=== PATIENT | female | born 1970 | race Two or more races ===

== ENCOUNTER 2017-09-06 09:13 | Emergency (ER) | payer SELFPAY ==
[2017-09-06 09:19] VITALS: BP 113/75; PULSE 78; RESP 18; TEMP 97.7; O2SAT 96
--- NOTE | 2017-09-06 09:26 | EDPHY ---
H & P Stated Complaint: r upper tooth pain swelling since 1 week Time Seen by Provider: 09/06/17 09:25 - Personal History LMP (Females 10-55): 22-28 Days Ago Current Tetanus/Diphtheria Vaccine: No - Medical/Surgical History Hx Asthma: No Hx Chronic Respiratory Disease: No Hx Diabetes: No Hx Cardiac Disease: No Hx Renal Disease: No Hx Cirrhosis: No Hx Alcoholism: No Hx HIV/AIDS: No Hx Splenectomy or Spleen Trauma: No Other PMH: denies - Social History Smoking Status: Light smoker Constitutional: Initial Vital Signs Temperature (C) 36.5 C 09/06/17 09:16 Heart Rate 78 09/06/17 09:16 Respiratory Rate 18 09/06/17 09:16 Blood Pressure 113/75 09/06/17 09:16 O2 Sat (%) 96 09/06/17 09:16 O2 Delivery Mode Room Air Allergies/Adverse Reactions: No Known Allergies Allergy (Unverified 09/06/17 09:15) Home Medications: Medication Instructions Recorded Cephalexin [Keflex (RX)] 500 mg PO TID #30 cap 09/06/17 HYDROcodone/APAP 10/325 [[place] 1 - 2 each PO Q4-6PRN PRN #11 tab 09/06/17 10/325] Ibuprofen [Motrin] 800 mg PO Q8 #20 tab 09/06/17 Medical Decision Making ED Course/Re-evaluation: CHIEF COMPLAINT: Right upper tooth pain and swelling HISTORY OF PRESENT ILLNESS: The patient is a 47 y/o female complaining of right upper tooth pain and swelling for 1 week. She has a history of dental abscesses following tooth extractions; her symptoms today are similar to prior abscesses. She has not seen a dentist recently. Denies shortness of breath, fever, numbness, paresthesias or other pertinent symptoms. REVIEW OF SYSTEMS: A 10 point review of systems was performed and is negative with the exception of the elements mentioned in the history of present illness. PHYSICAL EXAM: HR, BP, O2 Sat, RR. Temp noted General Appearance: Alert, well hydrated, appropriate, and non-toxic appearing. Head: Atraumatic without scalp tenderness or obvious injury Eyes: Pupils equal, round, reactive to light and accommodation, EOMI, no trauma , no injection. Ears: Clear bilaterally, no perforation, normal landmarks Nose: Atraumatic, no rhinorrhea, clear. Mouth: Right-sided facial swelling, erythematic gums. Throat: No exudates, no lesions, normal tonsils, mucus membranes moist. Neck: Supple, nontender, no lymphadenopathy. Respiratory: No retractions, no distress, no wheezes, and no accessory muscle use. Lungs are clear to auscultation bilaterally. Cardiovascular: Regular rate and rhythm, no murmurs, rubs, or gallops. Good capillary refill all extremities. Gastrointestinal: Abdomen is soft, nontender, non-distended, no masses, no rebound, no guarding, no peritoneal signs. Musculoskeletal: Normal active ROM of all extremities, atraumatic. Neurological: Alert, appropriate, and interactive. Non-focal neuro. Skin: No rashes, good turgor, no nodules on palpation. Past medical history: Dental abscess Past surgical history: Denies Family history: Denies Social history: Lives in [place], works for [employer], smoker DIFFERENTIAL DIAGNOSIS: The differential diagnosis for the patient's facial swelling included but was not limited to dental abscess, viral syndrome, pharyngitis, sinusitis, and sepsis. MEDICAL DECISION MAKING: The patient is a 47 y/o female with a history of dental abscesses presenting with right-sided facial swelling and erythematic gums. She does not meet criteria for a facial CT or and I&D. 500mg PO Keflex administered. Reassessed patient and discussed follow up with [facility]. I have prescribed her Motrin, Keflex, and [place] for her dental abscess. Return precautions provided; patient is comfortable with this plan. - Data Points Medications Given: Discontinued Medications Cephalexin (Keflex 500 Mg Prepack#4) 1 btl TAKEHOME EDNOW ONE PRN Reason: Protocol Stop: 09/06/17 09:32 Last Admin: 09/06/17 09:56 Dose: 1 btl Cephalexin HCl (Keflex) 500 mg PO EDNOW ONE PRN Reason: Protocol Stop: 09/06/17 09:32 Last Admin: 09/06/17 09:56 Dose: 500 mg Departure - Departure Disposition: Home, Routine, Self-Care Clinical Impression: Dental abscess, Facial swelling Condition: Good Instructions: Dental Abscess (ED) Additional Instructions: 1. Take Motrin as prescribed. 2. Take [place] as prescribed. 3. Take Keflex as prescribed. 4. Follow-up with your dentist within one week. You can call the [facility] emergency number at [phone] 5. Return to the ED for fever, difficulty swallowing, increase in swelling or other concerns. Referrals: [facility] [Outside] - As per Instructions Prescriptions: Cephalexin [Keflex (RX)] 500 mg PO TID #30 cap HYDROcodone/APAP 10/325 [[place] 10/325] 1 - 2 each PO Q4-6PRN PRN #11 tab PRN Reason: Pain, Moderate Ibuprofen [Motrin] 800 mg PO Q8 #20 tab Report Scribed for: Fuentes Oglesby Report Scribed by: Stephanie Middleton Date of Report: 09/06/17 Time of Report: 09:28
[2017-09-06] MEDS ORDERED: CEPHALEXIN 500MG PREPACK#4 BTL TAKEHOME ONE (09:31)
[2017-09-06] MEDS ORDERED: CEPHALEXIN 500 MG CAP PO ONE (09:31)
== END 2017-09-06 10:11 | disposition home or self-care (01) ==
DX: K04.7 Periapical abscess without sinus (principal); F17.200 Nicotine dependence, unspecified, uncomplicated